=== PATIENT | female | born 1990 | race Caucasian/White ===

== ENCOUNTER 2017-04-05 14:44 | Emergency (ER) | END 2017-04-05 18:40 | disposition left against medical advice (07) ==

== ENCOUNTER 2018-08-23 12:15 | Emergency (ER) | payer OTHER ==
[~2018-08-23] VITALS: Ht 157.5 cm; Wt 86.5 kg
[2018-08-23 12:27] VITALS: BP 157/76; PULSE 80; RESP 18; Ht 157.5 cm; Wt 86.5 kg
[2018-08-23] MEDS ORDERED: ACETAMINOPHEN 325 MG TAB PO STA (13:34)
[2018-08-23] MEDS ORDERED: NITR-58 PO (15:39)
[2018-08-23] MEDS ORDERED: ACET-141 PO (15:39)
--- NOTE | 2018-08-23 19:34 | ERD ---
ER Documentation Chief Complaint Chief Complaint pt is bib self with c/o pelvic pain, [facility] HPI History of Present Illness: 28-year-old female who denies a past medical history coming in today due to cramping and pelvic pain. Patient reports a positive [facility] confirmation at [facility]. Patient is G2, P1. patient reports that she believes her last menstrual period was on 07/19/2018. Patient reports experiencing brown vaginal bleeding starting yesterday that has progressed to red vaginal bleeding, and has increased in the amount. Patient denies passing any clots. Patient denies soaking 1 pad per hour. At home pharmacological/nonpharmacological treatment for symptoms: Denies Denies social concerns; Denies recent foreign travel ROS All systems reviewed and are negative except as per history of present illness. Medications Home Meds Active Scripts Acetaminophen* (Acetaminophen*) 500 MG Extra Strength Tablet, 1000 MG PO Q6H PRN for PAIN AND OR ELEVATED TEMP, #30 TAB Prov:CATIA STEEL NP 08/23/18 Nitrofurantoin Monohyd Macrocr* (Macrobid*) 100 Mg Capsr, 100 MG PO BID for BACTERIA IN URINE for 5 Days, CAP Prov:CATIA STEEL NP 08/23/18 Allergies Allergies: Coded Allergies: No Known Allergy (Unverified , 04/05/17) PMhx/Soc Medical and Surgical Hx: pt denies Medical Hx, pt denies Surgical Hx Hx Alcohol Use: No Hx Tobacco Use: No Smoking Status: Never smoker FmHx Family History: diabetes Physical Exam Vitals Vital Signs Date Temp Pulse Resp B/P (MAP) Pulse Ox O2 O2 Flow FiO2 Time Delivery Rate 08/23/18 99.3 80 18 157/76 98 12:27 (103) Physical Exam Const: No acute distress Head: Atraumatic Eyes: Normal Conjunctiva ENT: Normal External Ears, Nose and Mouth. Neck: Full range of motion. No meningismus. Resp: Clear to auscultation bilaterally Cardio: Regular rate and rhythm, no murmurs Abd: Soft, non tender, non distended. Normal bowel sounds Skin: No petechiae or rashes Back: No midline or flank tenderness Ext: No cyanosis, or edema Neur: Awake and alert Psych: Normal Mood and Affect Result Diagram: 08/23/18 1347 Results 24 hrs Laboratory Tests Test 08/23/18 13:47 White Blood Count 8.5 10^3/ul Red Blood Count 4.75 10^6/ul Hemoglobin 13.4 g/dl Hematocrit 40.7 % Mean Corpuscular Volume 85.7 fl Mean Corpuscular Hemoglobin 28.2 pg Mean Corpuscular Hemoglobin Concent 32.9 g/dl Red Cell Distribution Width 13.1 % Platelet Count 254 10^3/UL Mean Platelet Volume 10.7 fl Immature Granulocytes % 0.200 % Neutrophils % 68.2 % Lymphocytes % 23.3 % Monocytes % 7.2 % Eosinophils % 0.7 % Basophils % 0.4 % Nucleated Red Blood Cells % 0.0 /100WBC Immature Granulocytes # 0.020 10^3/ul Neutrophils # 5.8 10^3/ul Lymphocytes # 2.0 10^3/ul Monocytes # 0.6 10^3/ul Eosinophils # 0.1 10^3/ul Basophils # 0.0 10^3/ul Nucleated Red Blood Cells # 0.0 10^3/ul Urine Color STRAW Urine Clarity CLEAR Urine pH 7.0 Urine Specific [place] 1.001 Urine Ketones NEGATIVE mg/dL Urine Nitrite NEGATIVE mg/dL Urine Bilirubin NEGATIVE mg/dL Urine Urobilinogen NEGATIVE mg/dL Urine Leukocyte Esterase NEGATIVE Imer/ul Urine Microscopic RBC 0 /HPF Urine Microscopic WBC 0 /HPF Urine Bacteria FEW /HPF Urine Hemoglobin 1+ mg/dL Urine Glucose NEGATIVE mg/dL Urine Total Protein NEGATIVE mg/dl Beta HCG, Quantitative 19859.0 mIU/ml Current Medications Medications Dose Sig/Lefty Start Time Status Last (Trade) Ordered Route PRN Stop Time Admin Dose Reason Admin 650 mg ONCE STAT 08/23/18 DC Acetaminophen PO 13:34 (Tylenol 08/23/18 13:36 Tab) Procedures/MDM ED COURSE: ED course includes a thorough examination and history. The patient was stable throughout ED course. I kept the patient and/or family informed of laboratory and diagnostic imaging results throughout the ED course. LABS: CBC: no e/o of systemic infection or severe anemia Beta quantitative: 18,281 Urinalysis positive for few bacteria, 1+ hemoglobin Rh/type is A+, no RhoGam indicated MEDICATIONS GIVEN IN ER: Acetaminophen patient tolerated medication well with no adverse reactions. Patient reported improvement in pain. DIAGNOSTIC IMAGING: Read by radiologist. OB ultrasound showing: IMPRESSION: 1. Single early intrauterine gestation of approximately 6 weeks 2 days. heart tone is difficult to obtain at this stage, due to small size. Continued clinical correlation with serial beta HCG and follow-up pelvic ultrasound is recommended. 2. 1.8 cm corpus luteal cyst in the left ovary. No evidence of adnexal solid or macrocystic lesion bilaterally. RPTAT: [facility] Physician Talib Date Time Electronically viewed and signed by Physician Talib on 08/23/2018 15:36 PROCEDURES: None. MEDICAL DECISION MAKING: Low suspicion for life-threatening medical emergency. Otherwise healthy patient presenting with constellation of symptoms likely representing uncomplicated threatened miscarriage, bacteria in urine as c haracterized by history, physical exam findings, radiology findings, lab findings Patient reassessment @ 1540: Results discussed. Patient expresses her desires for termination. [facility]; copies of results given. Patient hemodynamically stable. No respiratory distress, otherwise relatively well appearing and nontoxic. Disposition given. Patient educated on diagnoses, prescriptions, follow-up care, return precautions. Strict return precautions given for worsening condition; questions answered discharge. Patient verbalizes understanding of discharge instructions. PRESCRIPTIONS FOR HOME: Macrobid, acetaminophen DISPOSITION: DISCHARGE At this time, patient is stable for discharge and outpatient management. I have instructed the patient to follow-up with his/her primary care physician in 1-2 days. I have discussed with the patient the possibility of needing to see a specialist for further workup and imaging studies if symptoms persist. I have instructed the patient to promptly return to the ER for any new or worsening symptoms including increased pain, fever, nausea, vomiting, weakness or LOC. The patient and/or family expressed understanding of and agreement with this plan. All questions were answered. Home care instructions were provided. DISCLAIMER: Inadvertent spelling and grammatical errors are likely due to EHR/dictation software use and do not reflect on the overall quality of patient care. Also, please note that the electronic time recorded on this note does not necessarily reflect the actual time of the patient encounter. Departure Diagnosis: Primary Impression: Bacteria in urine Additional Impressions: Vaginal bleeding during Threatened miscarriage Condition: Stable Patient Instructions: Urinary Tract Infections in Women, Vaginal Bleed in , Possible Miscarriage (Threatened ) Referrals: [facility] YOU HAVE RECEIVED A MEDICAL SCREENING EXAM AND THE RESULTS INDICATE THAT YOU DO NOT HAVE A CONDITION THAT REQUIRES URGENT TREATMENT IN THE EMERGENCY DEPARTMENT. FURTHER EVALUATION AND TREATMENT OF YOUR CONDITION CAN WAIT UNTIL YOU ARE SEEN IN YOUR DOCTORS OFFICE WITHIN THE NEXT 1-2 DAYS. IT IS YOUR RESPONSIBILITY TO MAKE AN APPOINTMENT FOR FOLOW-UP CARE. IF YOU HAVE A PRIMARY DOCTOR --you should call your primary doctor and schedule an appointment IF YOU DO NOT HAVE A PRIMARY DOCTOR YOU CAN CALL OUR PHYSICIAN REFERRAL HOTLINE AT IF YOU CAN NOT AFFORD TO SEE A PHYSICIAN YOU CAN CHOSE FROM THE FOLLOWING [facility] [address] [facility] [address] [place] [facility] [address] [facility] [address] [facility] [address] [facility]. [facility] [address] [facility]. [facility] YOU HAVE RECEIVED A MEDICAL SCREENING EXAM AND THE RESULTS INDICATE THAT YOU DO NOT HAVE A CONDITION THAT REQUIRES URGENT TREATMENT IN THE EMERGENCY DEPARTMENT. FURTHER EVALUATION AND TREATMENT OF YOUR CONDITION CAN WAIT UNTIL YOU ARE SEEN IN YOUR DOCTORS OFFICE WITHIN THE NEXT 1-2 DAYS. IT IS YOUR RESPONSIBILITY TO MAKE AN APPOINTMENT FOR FOLOW-UP CARE. IF YOU HAVE A PRIMARY DOCTOR --you should call your primary doctor and schedule and appointment IF YOU DO NOT HAVE A PRIMARY DOCTOR YOU CAN CALL OUR PHYSICIAN REFERRAL HOTLINE AT . IF YOU CAN NOT AFFORD TO SEE A PHYSICIAN YOU CAN CHOSE FROM THE FOLLOWING [facility]: [facility] [address] [place] [address] [facility] [address] [place] [address] [facility] [address] [place] [address] [employer] [place] [address] [facility] [address] [place] [address] OFFICE FAX OCTAVIA BARAJAS [address] [place] [address] [address] [place] [place] [address] [place] [address] [address] M[place]ILLO [facility] [address], [address], [facility] [address] [address] [place] [address] [facility] [address] [place] [address] [phone] [address] [facility] [address] - [place] ALVAREZ [address], [facility] [address] [address] VALDEZ, ANTONIO [address] [facility]. [address], [facility] [address] [address] [facility] [facility] [address] [place], [place] [id number] [facility] Hours: 8:00 am - 5:00 pm Additional Instructions: Thank you very much for allowing us to participate in your care. Your health and safety is our top priority at [facility]. It is important to read all discharge instructions and education provided in your discharge packet. Call your primary care doctor TOMORROW for an appointment during the next 2-4 days and bring all the information and medications prescribed. Have prescriptions filled and follow precisely the directions on the label. -Nitrofurantoin/Macrobid is an antibiotic; take this medication every day as listed on your prescription. You must complete the entire course of treatment that is listed on your prescription this is very important because it takes a certain number of days to kill the bacteria that is causing the infection. --Acetaminophen as a medication for pain and/or fever. Take this medication as needed for mild to moderate pain. This medication will not cause drowsiness. It is safe to take this medication during . If the symptoms get worse and your provider is unavailable, return to the Emergency Department immediately. CATIA STEEL NP Aug 23, 2018 19:34
== END 2018-08-23 15:47 | disposition home or self-care (01) ==
LOC: FTE 12:15
DX: O26.891 Other specified pregnancy related conditions, first trimester (principal); O20.0 Threatened abortion; R82.71 Bacteriuria; Z3A.01 Less than 8 weeks gestation of pregnancy
CPT/HCPCS: 36415; 76801; 76817; 81001; 84702; 85025; 86900; 86901; Z7502